=== PATIENT | female | born 1980 | race Caucasian/White ===

== ENCOUNTER 2024-02-02 06:06 | Day surgery (SDC) | payer SELFPAY ==
[2024-02-02] VITALS (11 sets, daily range): BP systolic 0–129; BP diastolic 58–75; BMI 27.5
[2024-02-02] MEDS: NORMOSOL-R 1000 IV (06:53)
[2024-02-02] MEDS: TYLENOL 1000 MG PO (06:53)
--- NOTE | 2024-02-02 07:46 | W.SUR.PREOP ---
Pre-Operative Surgical Note
-
I have examined this patient prior to the performance of the scheduled procedure.
The patient's condition is unchanged from the time of the current History and
Physical and the patient is able to undergo the scheduled procedure.
--- NOTE | 2024-02-02 16:46 | W.IMMPOSTOP ---
Surgical Immed Post Op Note
-
Primary Surgeon: SUKHJINDER Quintero MD
Assisting Surgeon:
Pre-op Diagnosis: elective cosmetic procedure
Post-op Diagnosis: same
Procedure Performed: vertical abdominal plasty with liposuction flanks
Anesthesia Type: General
Specimen / Cultures: none
Estimated Blood Loss: 30 cc
Complications: none
Operative Findings: as expected
--- NOTE | 2024-02-02 16:47 | OR.RPT ---
Operative Report
Operative Report
Surgeon: SUKHJINDER Quintero MD
Preoperative diagnosis: Massive weight loss, skin excess, lipodystrophy, elective cosmetic procedure
Postoperative diagnosis: Same
Procedure: Vertical abdominoplasty with liposuction of the flanks, fat grafting to the bilateral breasts
Anesthesia: General
Complications: None
EBL: 30 cc
Indications for procedure: Patient is a 44-year-old female who under went massive weight loss totaling over 150 pounds via diet and exercise. No history of bariatric surgery or medical therapies. She had previously undergone Lipo abdominoplasty
surgery as well as upper back left, breast lift and reverse abdominoplasty. She lost additional weight and noted horizontal skin excess of the upper abdomen. A plan was made for vertical abdominoplasty and the scar burden was reviewed at length.
Compromise the umbilicus was reviewed at length. This would be paired with liposuction to lateral flanks to allow for skin excursion and a Izaguirre affect as well as for contouring. Risk include bleeding, blood clots, infection, abnormal scar, skin
necrosis and wound healing complications. She understood these risk desired to proceed
Procedure in detail: Patient was identified in the preoperative area and the surgical site was confirmed to be the anterior trunk and flanks. All questions were answered and consents were confirmed. A vertical abdominal plasty was marked out using
external skin pinch after marking the midline. Plan for dogear excisions would take place superiorly and inferiorly. The umbilicus will be maintained. Patient was taken back to the operating room and placed supine on the table. Anesthesia was
induced and an endotracheal tube was placed. A Rouse was placed and timeout for patient safety was performed. Patient was prepped and draped in the usual sterile fashion using ChloraPrep solution. It was confirmed that bilateral SCDs were in
place and preoperative antibiotics have been administered. The procedure began with a series of tailor tacking to confirm the markings and a symmetrical excision pattern from the midline. A total of 1 L of tumescent solution was then instilled
into the bilateral lateral flanks. Liposuction was then performed following SAF E procedural guidance. Due to the prior liposuction, Lipo aspirate was mostly fluid. 500 cc of Lipo aspirate was then processed using pure graft. Procedure then
focused on the excisional components where the midline was incised with a 15 blade. Bovie electrocautery was taken down through the subcutaneous tissues to the fascia. The bilateral skin excision was performed prior to the lateral incision,
excursion to the midline was double checked. This was performed bilaterally. Meticulous hemostasis was ensured and then tap blocks were performed with Marcaine. A drain was placed in the midline was closed in the deep Sita's fascia with a 1 PDS
barbed suture. INSORB dermal stapler was used to close the deep dermis followed by a barbed 3 oh [place] Derm. The superior and inferior dogears were excised into the inframammary folds and along the prior abdominoplasty incision accordingly.
Additional liposuction was performed to the mons for contouring. A total of 150 cc of fat graft was available for injection into the bilateral breast. As such 75 cc 1 in each breast via the inframammary fold. Patient tolerated the procedure well
was performed out complication. All counts were correct at the end the case. She was extubated taken the PACU for further care. Wounds were dressed with bacitracin, dry gauze, Tegaderm and an abdominal binder was placed.
== END 2024-02-02 14:18 | disposition home or self-care (01) ==
LOC: COSMETIC 06:06
PROVIDERS: Anesthesiology; ATTENDING PHYSICIAN Surgery Plastic and Reconstructive Surgery
DX: Z41.1 Encounter for cosmetic surgery (principal); E88.1 Lipodystrophy, not elsewhere classified; L98.7 Excessive and redundant skin and subcutaneous tissue
CPT/HCPCS: 15830; 15877; 15879; 15771; 85018; C1729